=== PATIENT | male | born 1975 | race Two or more races ===

== ENCOUNTER 2025-01-19 20:05 | Inpatient (IN) | payer MEDICAID, OTHER ==
[~2025-01-19] VITALS: Ht 170.2 cm; Wt 93.5 kg
[2025-01-19 23:37] VITALS: PULSE 66; RESP 15; O2SAT 95
[2025-01-19 23:48] LABS: Hematocrit 50.7 % (41.0-53.0); Hemoglobin 17.7 g/dL (13.5-17.5); Mean Corpuscular Hemoglobin 29.3 pg (28.0-32.0); Mean Corpuscular Volume 84.2 fL (80.0-100.0); Nucleated Red Blood Cells % 0.2 %
[2025-01-19 23:55] LABS: Chloride 106 mmol/L (98-107); Potassium 4.7 mmol/L (3.5-5.1); Sodium 139 mmol/L (136-145)
[2025-01-19 23:56] LABS: Anion Gap 9 (5-15); Calcium 10.4 mg/dL (8.7-10.4); Carbon Dioxide 24 mmol/L (20-31)
[2025-01-20 00:01] LABS: BUN/Creatinine Ratio 13.0 (10.0-20.0); Blood Urea Nitrogen 12 mg/dL (9-23)
[2025-01-20 00:02] LABS: Glucose 137 mg/dL (74-106)
--- NOTE | 2025-01-20 00:53 | ED.PDOC ---
History of Present Illness HPI Comments 49 year old male with PMHx Gout, HTN, presents to the ED with a chief complaint of dizziness onset 2 months. Patient states he has been experiencing intermittent dizziness for the past 2 months. About 2 weeks ago experienced an episode of chest pain, shortness of breath while driving, pulled over, symptoms resolved shortly after. Today, patient began experiencing shortness of breath, chest pain, dizziness, came to ED. Is not complaint with BP medication. BP upon ED arrival was 161/104. Denies nausea, vomiting, diarrhea, headache, dysuria, hematuria, numbness/tingling. No other symptoms or modifying factors present at this time. REVIEW OF SYSTEMS: General: No fever, no chills, or fatigue HEENT: No sore throat, no earache, no congestion, no neck pain. Cardiac: chest pain. No palpitations. Lungs: shortness of breath, no cough. GI: No nausea, no vomiting, no diarrhea, no constipation, no abdominal pain : No dysuria, frequency, or urgency. No hematuria. Musculoskeletal: No joint pain , no joint swelling, no extremity edema. Skin: No rash, no itching. Neuro: Dizziness. No headache, no weakness (And as sated in HPI) PHYSICAL EXAM: General: Awake, alert and oriented. No acute distress. Skin: Skin in warm, dry and intact. Appropriate color for ethnicity. HEENT: The head is normocephalic and atraumatic. Conjunctivae are clear without exudates or hemorrhage. Sclera is non-icteric. Eyelids are normal in appearance without swelling or lesions. Oral mucosa is pink and moist Neck: The neck is supple with normal range of motion. No JVD. Cardiac: Heart rate and rhythm are normal. No murmurs, gallops, or rubs are auscultated. Respiratory: No signs of respiratory distress. Lung sounds are clear in all lobes bilaterally without rales, rhonchi, or wheezes. Abdominal: Abdomen is soft, non-tender without distention, guarding or rigidity. Bowel sounds are present and normoactive in all four quadrants. Extremities: Upper and lower extremities are atraumatic in appearance without deformity or edema. Neurological: The patient is awake, alert and oriented to person, place, and time with normal speech. Speech is clear. There is no facial asymmetry. Psychiatric: Appropriate mood and affect. Good judgement and insight. Chief Complaint: Dizziness Time Seen by MD: 23:50 Reviewed Notes: Medications, Allergies Allergies: Coded Allergies: NO KNOWN ALLERGIES (Unverified , 01/19/25) Information Source: Patient Mode of Arrival: Ambulatory Severity: Moderate Timing: Months Duration: Since onset Prehospital treatment: None Past Medical History PAST MEDICAL HISTORY: Gout, HTN Surgical History: Denies all surgeries Family History Family History: Reviewed,noncontributory to illness, No family hx of Cancer, No family hx of DM, No family hx of Heart carson, No family hx of HTN, No family hx ofKidney carson, No family hx of Liver carson, No family hx of Lung carson, No family hx of Stroke Social History Smoker: Non-Smoker Alcohol: Denies ETOH Use Drugs: Denies Drug Use Lives In: Home Was a procedure done? Was a procedure done?: No X-Ray, Labs, Meds, VS Vital Signs Date Time Temp Pulse Resp B/P (MAP) Pulse Ox O2 Delivery O2 Flow Rate FiO2 01/19/25 23:37 98.7 66 18 161/104 (123) 95 98.7 01/19/25 23:37 66 15 95 Room Air* 0 21 01/19/25 20:07 98.6 94 18 153/103 98 98.6 Lab Test 01/19/25 23:37 Range/Units White Blood Count 10.4 4.4-10.8 10^3/uL Red Blood Count 6.02 H 4.5-5.90 10^6/uL Hemoglobin 17.7 H 13.5-17.5 g/dL Hematocrit 50.7 41.0-53.0 % Mean Corpuscular Volume 84.2 80.0-100.0 fL Mean Corpuscular Hemoglobin 29.3 28.0-32.0 pg Mean Corpuscular Hemoglobin Concent 34.9 32.0-36.0 g/dL Red Cell Distribution Width 13.5 11.8-14.3 % Platelet Count 294 140-450 10^3/uL Mean Platelet Volume 7.9 6.9-10.8 fL Neutrophils (%) (Auto) 81.5 H 37.0-80.0 % Lymphocytes (%) (Auto) 16.4 10.0-50.0 % Monocytes (%) (Auto) 1.7 0.0-12.0 % Eosinophils (%) (Auto) 0.1 0.0-7.0 % Basophils (%) (Auto) 0.3 0.0-2.0 % Neutrophils # (Auto) 8.5 1.6-8.6 10 ^3/uL Lymphocytes # (Auto) 1.7 0.4-5.4 10 ^3/uL Monocytes # (Auto) 0.2 0-1.3 10 ^3/uL Eosinophils # (Auto) 0 0-0.8 10 ^3/uL Basophils # (Auto) 0 0-0.2 10 ^3/uL Nucleated Red Blood Cells 0.2 % D-Dimer, Quantitative 0.20 0.0-0.49 mg/L FEU Sodium Level 139 136-145 mmol/L Potassium Level 4.7 3.5-5.1 mmol/L Chloride Level 106 98-107 mmol/L Carbon Dioxide Level 24 20-31 mmol/L Anion Gap 9 5-15 Blood Urea Nitrogen 12 9-23 mg/dL Creatinine 0.92 0.700-1.30 mg/dL Glomerular Filtration Rate Calc 101 >90 mL/min BUN/Creatinine Ratio 13.0 10.0-20.0 Serum Glucose 137 H 74-106 mg/dL Calcium Level 10.4 8.7-10.4 mg/dL Troponin I High Sensitivity < 3 L </=54 ng/L B-Type Natriuretic Peptide 15.18 0-100 pg/mL Time of 1ST Reevaluation: 00:20 Reevaluation 1ST: Unchanged Patient Education/Counseling: Need For Follow Up Family Education/Counseling: No Family Present SEPSIS Sepsis Screen Date sepsis recognized/suspect: Jan 19, 2025 Time Sepsis recognized/suspect: 2010 Recent Procedure: No On Antibiotic Therapy: No Respiratory Rate >20: No Heart Rate >90: No Temp<36 C (96.8 F) or >38.3 C: No SBP <90 or MAP <65 mmHG: No New Acute Mental Status Change: No Is the patient on CPAP, BIPAP,: No Physician Orders Electrocardigram (01/19/25 23:28) Weights And Measures Sealer (01/19/25 ) Orthostatic Vital Signs (01/19/25 ) Saline Lock (01/19/25 23:28) Fall Precautions Initiated (01/19/25 23:28) Vital Signs Date Time Temp Pulse Resp B/P (MAP) Pulse Ox O2 Delivery O2 Flow Rate FiO2 01/19/25 23:37 98.7 66 18 161/104 (123) 95 98.7 01/19/25 23:37 66 15 95 Room Air* 0 21 01/19/25 20:07 98.6 94 18 153/103 98 98.6 Laboratory Tests Test 01/19/25 23:37 White Blood Count 10.4 10^3/uL (4.4-10.8) Departure 1 Departure Time of Disposition: 01:58 Impression: Primary Impression: Chest pain Additional Impression: Shortness of breath Disposition: ADMITTED INPATIENT Condition: Stable Comments 49-year-old male with multiple risk factors presents with palpitations, dizziness, episode of syncope, shortness of breath and chest pain. Patient admitted to hospitalist service for further treatment, evaluation and monitoring. Critical Care Note Critical Care Time?: No Stability Stability form required: No Heart Score Heart Score: Heart Score Response (Comments) Value History N/A 0 EKG N/A 0 Age N/A 0 Risk Factors N/A 0 Troponin N/A 0 Total 0 I personally scribed for TEX TIRADO MD ([email or web address]) on 01/20/25 at 00:54. Electronically submitted by Angelika Llanos ([email or web address]). I personally scribed for TEX TIRADO MD ([email or web address]) on 01/20/25 at 01:53. Electronically submitted by Angelika Llanos ([email or web address]). TEX TIRADO MD Jan 20, 2025 00:53
--- NOTE | 2025-01-20 02:41 | DVH ---
CHEST RADIOGRAPH Indication: Shortness of breath, chest pain Technique: Single frontal view of the chest was obtained COMPARISON: None FINDINGS: Lines and Tubes: None Lungs: Clear Pleura: No effusion. No pneumothorax. Cardiomediastinal contours: Unremarkable Bones: Unremarkable IMPRESSION: 1. No acute disease.
[2025-01-20] MEDS ORDERED: ONDANSETRON HCL 4 MG/2 ML VIAL IV PRN (03:45)
[2025-01-20] MEDS ORDERED: MORPHINE SULFATE INJ 2 MG/ml SYRG IV PRN (03:45)
[2025-01-20] MEDS ORDERED: ACETAMINOPHEN 325 MG TAB PO PRN (03:45)
[2025-01-20] MEDS ORDERED: NITROGLYCERIN 0.4 MG SL TAB SL PRN (03:45)
--- NOTE | 2025-01-20 04:20 | DVHHP2 ---
History of Present Illness Reason for Visit: Chest pain History of Present Illness 49-year-old male presents for evaluation of chest pain. Patient reports developing substernal pressure-like chest pain today with associated shortness for breath and dizziness. Currently he denies chest pain. He reports having a history of high blood pressure yet he is not taking any medication at the moment. Past Medical History Hypertension Past Surgical History Denies Family History Noncontributory Smoke: No ALCOHOL: none Drugs: None Lives: with Family Review of Systems Review of Systems Review of systems are currently negative otherwise addressed in HPI. Allergies: Coded Allergies: NO KNOWN ALLERGIES (Unverified , 01/19/25) Medications Current Medications Medications Dose Ordered Sig/Mitchell Route Start Time Stop Time Status Last Admin Dose Admin Aspirin 81 mg DAILY PO 01/20/25 10:00 Ondansetron HCl 4 mg Q4HP PRN IV 01/20/25 03:45 Acetaminophen 650 mg Q6HP PRN PO 01/20/25 03:45 Nitroglycerin 0.4 mg Q5MINP PRN SL 01/20/25 03:45 Morphine Sulfate 2 mg Q30M PRN IV 01/20/25 03:45 Exam Vital Signs Vital Signs Date Time Temp Pulse Resp B/P (MAP) Pulse Ox O2 Delivery O2 Flow Rate FiO2 01/20/25 02:19 98.0 69 20 159/101 (120) 97 98.0 01/19/25 23:37 Room Air* 0 21 Exam Gen: 49-year-old male in no apparent distress. Skin: Warm, dry, normal color and texture, no rash. HEENT: Normocephalic atraumatic, mucous membranes moist and pink. Neck: Cervical and supraclavicular nodes normal without enlargement, trachea is midline, thyroid gland is normal without masses. Pulmonary: Clear to auscultation and percussion bilaterally. Cardiac: Regular rate and rhythm. No murmur Abdomen: Soft, nontender, nondistended, bowel sounds present all 4 quadrants, no guarding, no rigidity, no organomegaly. Extremities: No cyanosis, clubbing, no edema Neuro: Cranial nerves II through XII grossly intact, normal affect and speech, no focal motor deficits. Labs/Xrays ORDERING PHYSICIAN: TEX TIRADO MD PROCEDURE(s): CXR1 - CHEST XRAY 1 VIEW REASON: Shortness of breath, chest pain ORDER NUMBER(s): [id number], ACCESSION NUMBER(s): [id number] CHEST RADIOGRAPH Indication: Shortness of breath, chest pain Technique: Single frontal view of the chest was obtained COMPARISON: None FINDINGS: Lines and Tubes: None Lungs: Clear Pleura: No effusion. No pneumothorax. Cardiomediastinal contours: Unremarkable Bones: Unremarkable IMPRESSION: 1. No acute disease. Labs Test 01/19/25 23:37 Range/Units White Blood Count 10.4 4.4-10.8 10^3/uL Red Blood Count 6.02 H 4.5-5.90 10^6/uL Hemoglobin 17.7 H 13.5-17.5 g/dL Hematocrit 50.7 41.0-53.0 % Mean Corpuscular Volume 84.2 80.0-100.0 fL Mean Corpuscular Hemoglobin 29.3 28.0-32.0 pg Mean Corpuscular Hemoglobin Concent 34.9 32.0-36.0 g/dL Red Cell Distribution Width 13.5 11.8-14.3 % Platelet Count 294 140-450 10^3/uL Mean Platelet Volume 7.9 6.9-10.8 fL Neutrophils (%) (Auto) 81.5 H 37.0-80.0 % Lymphocytes (%) (Auto) 16.4 10.0-50.0 % Monocytes (%) (Auto) 1.7 0.0-12.0 % Eosinophils (%) (Auto) 0.1 0.0-7.0 % Basophils (%) (Auto) 0.3 0.0-2.0 % Neutrophils # (Auto) 8.5 1.6-8.6 10 ^3/uL Lymphocytes # (Auto) 1.7 0.4-5.4 10 ^3/uL Monocytes # (Auto) 0.2 0-1.3 10 ^3/uL Eosinophils # (Auto) 0 0-0.8 10 ^3/uL Basophils # (Auto) 0 0-0.2 10 ^3/uL Nucleated Red Blood Cells 0.2 % D-Dimer, Quantitative 0.20 0.0-0.49 mg/L FEU Sodium Level 139 136-145 mmol/L Potassium Level 4.7 3.5-5.1 mmol/L Chloride Level 106 98-107 mmol/L Carbon Dioxide Level 24 20-31 mmol/L Anion Gap 9 5-15 Blood Urea Nitrogen 12 9-23 mg/dL Creatinine 0.92 0.700-1.30 mg/dL Glomerular Filtration Rate Calc 101 >90 mL/min BUN/Creatinine Ratio 13.0 10.0-20.0 Serum Glucose 137 H 74-106 mg/dL Calcium Level 10.4 8.7-10.4 mg/dL Troponin I High Sensitivity < 3 L </=54 ng/L B-Type Natriuretic Peptide 15.18 0-100 pg/mL SEPSIS Sepsis Screen Date sepsis recognized/suspect: Jan 19, 2025 Time Sepsis recognized/suspect: 2010 Recent Procedure: No On Antibiotic Therapy: No Respiratory Rate >20: No Heart Rate >90: No Temp<36 C (96.8 F) or >38.3 C: No SBP <90 or MAP <65 mmHG: No New Acute Mental Status Change: No Is the patient on CPAP, BIPAP,: No Physician Orders Electrocardigram (01/19/25 23:28) Air Export Operations Agent (01/19/25 ) Orthostatic Vital Signs (01/19/25 ) Saline Lock (01/19/25 23:28) Fall Precautions Initiated (01/19/25 23:28) Chest Xray 1 View (01/20/25 01:56) Aspirin Tablet (01/20/25 10:00) Basic Metabolic Panel (01/21/25 04:00) Admit (01/20/25 03:36) Ondansetron Hcl (Zofran) (01/20/25 03:45) Cardiac Diet-2gna,Lofat,Lochol (01/20/25 Breakfast) Echo 2d Mode Cardiac Dop (01/20/25 03:36) Condition: Fair (01/20/25 03:36) Acetaminophen Tablet (Tylenol Tablet) (01/20/25 03:45) Bedrest With Bathroom Privileg (01/20/25 03:36) Nitroglycerin Sublingual (Ntrostat Subli (01/20/25 03:45) Morphine Sulfate Injection (01/20/25 03:45) Stat Ekg For Chest Pain (01/20/25 03:36) Notify Md Of Changes From Base (01/20/25 03:36) Feather Drying Machine Operator For 24 Hours (01/20/25 03:36) Emergency Dysrhythmia Protocol (01/20/25 03:36) Rhythm Strips Once Every Shift (01/20/25 03:36) Oxygen By Nasal Cannula (01/20/25 03:36) Vital Signs Date Time Temp Pulse Resp B/P (MAP) Pulse Ox O2 Delivery O2 Flow Rate FiO2 01/20/25 02:19 98.0 69 20 159/101 (120) 97 98.0 01/20/25 02:04 74 01/19/25 23:37 98.7 66 18 161/104 (123) 95 98.7 01/19/25 23:37 66 15 95 Room Air* 0 21 Laboratory Tests Test 01/19/25 23:37 White Blood Count 10.4 10^3/uL (4.4-10.8) Assessment/Plan Assessment/Plan Assessment Chest pain Essential hypertension Plan Admit the patient to telemetry to the hospitalist Echocardiogram pending Start lisinopril Continue treatment per orders. Plan discussed with: Patient My Orders Orders - BREANNA HUNTLEY Procedure Category Date Status Time Aspirin Tablet PHA 01/20/25 In Process 10:00 Basic Metabolic Panel LAB 01/21/25 Verified 04:00 Admit ADMIT 01/20/25 Transmitted 03:36 Ondansetron Hcl PHA 01/20/25 In Process (Zofran) 03:45 Cardiac DIET 01/20/25 Transmitted Diet-2gna,Lofat,Lochol Breakfast Echo 2d Mode Cardiac US 01/20/25 Logged DOP 03:36 Condition: Fair TALHA 01/20/25 In Process 03:36 Acetaminophen Tablet PHA 01/20/25 In Process (Tylenol Tablet) 03:45 Bedrest With Bathroom TALHA 01/20/25 In Process Privileg 03:36 Nitroglycerin PHA 01/20/25 In Process Sublingual (Ntrostat 03:45 Morphine Sulfate PHA 01/20/25 In Process Injection 03:45 Stat Ekg For Chest TALHA 01/20/25 In Process Pain 03:36 Notify Md Of Changes TALHA 01/20/25 In Process From Base 03:36 Feather Drying Machine Operator For TALHA 01/20/25 In Process 24 Hours 03:36 Emergency Dysrhythmia TALHA 01/20/25 In Process Protocol 03:36 Rhythm Strips Once TALHA 01/20/25 In Process Every Shift 03:36 Oxygen By Nasal RT 01/20/25 Transmitted Cannula 03:36 Date of Service: Jan 20, 2025 Billing Provider: BREANNA HUNTLEY Common Visit Codes: [id number] INP/OBS CARE (HIGH) BREANNA HUNTLEY Jan 20, 2025 04:20
[2025-01-20 04:57] LABS: Triglycerides 119 mg/dL (< 150)
[2025-01-20 04:59] LABS: HDL Cholesterol 51 mg/dL (40-59)
[2025-01-20 05:19] LABS: Cholesterol 253 mg/dL (< 200)
[2025-01-20 05:41] VITALS: BP 119/87; PULSE 62; RESP 15; TEMP 97.5; O2SAT 98
[2025-01-20 06:21] VITALS: BP 119/87; PULSE 60; RESP 16; O2SAT 98
[2025-01-20 08:00] VITALS: PULSE 65; O2SAT 95
[2025-01-20 08:47] VITALS: BP 122/90; PULSE 65; RESP 16; TEMP 97.9; O2SAT 95
[2025-01-20] MEDS: LISINOPRIL 5 MG TAB PO SCH (09:45)
[2025-01-20] MEDS ORDERED: ATOR20TA PO (11:41)
[2025-01-20] MEDS ORDERED: LISI10TA34 PO (11:41)
[2025-01-20 12:19] VITALS: BP 122/90; TEMP 36.6
--- NOTE | 2025-01-20 13:23 | ECG ---
[facility] Test Date: 2025-01-20 Test Time: 02:04:01 Pat Name: IZA MON Department: Room: 0297T Gender: M Baggage Smasher: AIDEE : 1975 Requested By: TEX TIRADO Order Number: [id number] Reading MD: Measurements Intervals [place] Rate: 74 P: 49 NE: 126 QRS: 5 QRSD: 87 T: 31 QT: 421 QTc: 467 Interpretive Statements Sinus rhythm Abnormal R-wave progression, early transition Left ventricular hypertrophy Please click the below link to view image of tracing.
--- NOTE | 2025-01-21 11:09 | DVHDS2 ---
Discharge Summary Date of Admission Jan 20, 2025 at 03:36 Date of Discharge: Jan 20, 2025 Admitting Diagnosis Chest pain Essential hypertension Labs/Diagnostic Data: Laboratory Results Test 01/19/25 23:37 White Blood Count 10.4 10^3/uL (4.4-10.8) Red Blood Count 6.02 10^6/uL (4.5-5.90) Hemoglobin 17.7 g/dL (13.5-17.5) Hematocrit 50.7 % (41.0-53.0) Mean Corpuscular Volume 84.2 fL (80.0-100.0) Mean Corpuscular Hemoglobin 29.3 pg (28.0-32.0) Mean Corpuscular Hemoglobin Concent 34.9 g/dL (32.0-36.0) Red Cell Distribution Width 13.5 % (11.8-14.3) Platelet Count 294 10^3/uL (140-450) Mean Platelet Volume 7.9 fL (6.9-10.8) Neutrophils (%) (Auto) 81.5 % (37.0-80.0) Lymphocytes (%) (Auto) 16.4 % (10.0-50.0) Monocytes (%) (Auto) 1.7 % (0.0-12.0) Eosinophils (%) (Auto) 0.1 % (0.0-7.0) Basophils (%) (Auto) 0.3 % (0.0-2.0) Neutrophils # (Auto) 8.5 10 ^3/uL (1.6-8.6) Lymphocytes # (Auto) 1.7 10 ^3/uL (0.4-5.4) Monocytes # (Auto) 0.2 10 ^3/uL (0-1.3) Eosinophils # (Auto) 0 10 ^3/uL (0-0.8) Basophils # (Auto) 0 10 ^3/uL (0-0.2) Nucleated Red Blood Cells 0.2 % D-Dimer, Quantitative 0.20 mg/L FEU (0.0-0.49) Sodium Level 139 mmol/L (136-145) Potassium Level 4.7 mmol/L (3.5-5.1) Chloride Level 106 mmol/L (98-107) Carbon Dioxide Level 24 mmol/L (20-31) Anion Gap 9 (5-15) Blood Urea Nitrogen 12 mg/dL (9-23) Creatinine 0.92 mg/dL (0.700-1.30) Glomerular Filtration Rate Calc 101 mL/min (>90) BUN/Creatinine Ratio 13.0 (10.0-20.0) Serum Glucose 137 mg/dL (74-106) Calcium Level 10.4 mg/dL (8.7-10.4) Troponin I High Sensitivity < 3 ng/L (</=54) B-Type Natriuretic Peptide 15.18 pg/mL (0-100) Triglycerides Level 119 mg/dL (< 150) Cholesterol Level 253 mg/dL (< 200) LDL Cholesterol 195 mg/dL (< 100) HDL Cholesterol 51 mg/dL (40-59) Thyroid Stimulating Hormone (TSH) 0.70 uIU/mL (0.55-4.78) Other Laboratory Tests 01/19/25 23:37 Brief Hx & Hospital Course: This is a 49 years old male with past medical history of hypertension. The patient came to emergency department because substernal pressure chest pain with shortness for breath and dizziness. The patient apparently ran out of his hypertensive medication and did not have any medication. Initially his blood pressure in the ER was 161/104. Patient subsequently has lisinopril 10 mg p.o. daily and today his blood pressure control. The patient denied any chest pain, shortness for breath or dizziness. The patient's EKG and troponin level has been negative. So I am going to discharge him home. Advised him to follow up with primary care physician 1-2 weeks. The patient was found to have hyper lipidemia with the elevation of total cholesterol 252 and LDL of 195. The patient was started on Lipitor 20 mg p.o. daily. I advised the patient diet and exercise. Patient also found to have elevation of blood glucose at 137 but he not sure this is the blood glucose of fasting so I advised him to talk to his primary care physician had his blood glucose retake. Activity as tolerated. Diet low-salt low-cholesterol diet. Follow up with primary care physician 1-2 weeks. Physical exam: HEENT: Normocephalic atraumatic pupils equal react to light and accommodation. Extraocular muscles intact, conjunctiva pink, oropharynx moist, no thrush, no exudate. Lymphatic: No lymphadenopathy Cardiovascular exam: S1, S2 was heard. No murmurs, rubs, gallops Lung: Clear on auscultation bilaterally, no wheeze, rale, rhonchi. GI: Abdominal soft, nondistended, nontenderness, positive bowel sounds. Extremity: No crepitus, cyanosis, edema. Pedal pulses present bilateral. Full range of motion. Skin: Normal turgor, no rash. Psych: Alert, oriented x3. Neurology: No focal deficits, cranial nerve II to XII grossly intact. This medical document was created using an electronic medical record system with [employer] dictation system. Although this document has been carefully reviewed, there may still be some phonetic and typographical errors. These areas are purely typographical due to imperfections of the software programs, and do not reflect any compromise in the patient's medical care. Condition at Discharge: Stable Final Diagnosis/Problems List chest pain and shortness for breath due to hypertension uncontrolled HTN uncontrolled Hyperlipidemia Discharge Disposition: Home Discharge Instruct/Medications Diet: Cardiac 2g Na,low cholest Activity: No Restrictions, As Tolerated Follow Up/Referral: PCP 1-2 weeks Medications: see medlist Scheduled Atorvastatin Calcium (Lipitor), 1 TAB PO DAILY Lisinopril (Lisinopril), 10 MG PO DAILY Discharge Statement: "Patient was advised to return to the ER or call 911 if any headaches, dizziness, shortness of breath, chest pain, abdominal pain, bleeding, fevers, or worsening of medical condition. Patient was counseled about treatment plan, medications, possible side effects, patientverbalized understanding. All questions were answered to the best of my ability. This discharge took greater then 30 minutes in planning, reviewing documentation, counseling the patient, and discussing with other team members." ASSESSMENT ASSESSMENT Assessment chest pain HTN uncontrolled Hyperlipidemia Date of Service: Jan 20, 2025 Billing Provider: AMOS BORRERO MD Common Visit Codes: [id number]-PNX/[id number] SAME DATE (HIGH) AMOS BORRERO MD Jan 20, 2025 11:42
== END 2025-01-20 13:30 | disposition home or self-care (01) | DRG 199 ==
LOC: ER 20:05 → OVERFLOW 01-20 03:36 → TELE-WESTW 01-20 04:40
PROVIDERS: ADMIT Internal Medicine; ATTEND Internal Medicine
DX: I16.0 Hypertensive urgency (principal); G90.89 Other disorders of autonomic nervous system; E78.00 Pure hypercholesterolemia, unspecified; I10 Essential (primary) hypertension; M10.9 Gout, unspecified; Z79.899 Other long term (current) drug therapy
CPT/HCPCS: 36415; 71045; 80048; 80061; 83880; 84443; 84484; 85025; 85379; 93005; G0378